=== PATIENT | male | born 1955 | race Caucasian/White ===

== ENCOUNTER 2018-03-13 14:39 | Outpatient (CLI) ==
[2013-09-22 11:21] VITALS: BMI 19.5
== END 2018-03-13 14:40 | disposition home or self-care (01) ==
LOC: NONPT 14:39
PROVIDERS: ATTEND Family Medicine
DX: G11.1 Early-onset cerebellar ataxia (principal); I25.10 Atherosclerotic heart disease of native coronary artery without angina pectoris; F41.9 Anxiety disorder, unspecified; Z79.899 Other long term (current) drug therapy
CPT/HCPCS: 80053; 81001; 85025; 87086